=== PATIENT | male | born 1965 ===

== ENCOUNTER 2020-08-15 11:02 | Outpatient (CLI) | payer SELFPAY ==
--- NOTE | 2020-08-15 12:52 | DI.RAD_ITS ---
EXAM: XR CHEST 2V PA LATERAL CLINICAL HISTORY: PERSONAL HX TUBERCULOSIS Z86.11 TECHNIQUE: 2D digital imaging was performed. COMPARISON: No exams were available for comparison FINDINGS: MEDIASTINUM: Normal. HEART: Normal. PULMONARY VASCULATURE: Normal. LUNGS: Tiny nodules are seen in the right upper lobe. No focal consolidating infiltrates are seen. PLEURAL SPACE: No pleural effusion or pneumothorax. BONE:Within normal limits for the patient's age. OTHER FINDINGS:Normal. IMPRESSION: Small nodules seen in the right upper lobe. This may be sequelae of prior granulomatous disease. No dular infiltrate or neoplasm cannot be excluded. A CT scan of the chest should be considered for fur ther evaluation. DATA REPOSITORY: RADIATION DOSE DELIVERED:
== END 2020-08-15 11:22 ==
PROVIDERS: PCP Family Medicine; Visit Provider Family Medicine
DX: R91.8 Other nonspecific abnormal finding of lung field (principal); Z86.11 Personal history of tuberculosis
CPT/HCPCS: 71046

== ENCOUNTER 2020-08-15 15:39 | Outpatient (REF) | payer SELFPAY ==
[2020-08-15 21:02] LABS: Anion Gap 8.1 mmol/L (3-11); BUN 18 mg/dL (7-18); CO2 25.9 mmol/L (21.0-32.0); CREATININE 0.97 mg/dL (0.70-1.30); Calcium 8.5 mg/dL (8.5-10.1); Chloride 103 mmol/L (98-107); Glucose 120 mg/dL (74-106); Sodium 137 mmol/L (136-145)
[2020-08-15 21:35] LABS: ESR 22 mm/hr (1-20)
== END 2020-08-15 15:59 ==
LOC: NCHCN 15:39
PROVIDERS: Visit Provider Family Medicine
DX: R68.83 Chills (without fever) (principal); R39.9 Unspecified symptoms and signs involving the genitourinary system; Z87.448 Personal history of other diseases of urinary system
CPT/HCPCS: 80048; 85652; 87086